=== PATIENT | female | born 1930 | race Caucasian/White ===

== ENCOUNTER → 2017-04-26 | Outpatient (CLI) | payer MEDICARE, OTHER ==
[~2017-04-26] VITALS: Ht 162.6 cm; Wt 78.0 kg
[~2017-04-26] MED LIST: CALC390T PO; CELE200C PO; CHOL500061 PO; DOCU100T7 PO; GLUC1TAB29 PO; METO-272 PO; MULT-974 PO; NITR50CA PO; OMG1KC PO; PROP10DR4 OP; TELM1TAB2 PO; [UNRECOGNIZED DRUG - OTHER] PO
== END ==
LOC: PREOP 15:06
PROVIDERS: ATTEND Podiatrist Foot & Ankle Surgery
DX: Z01.818 Encounter for other preprocedural examination (principal); M20.41 Other hammer toe(s) (acquired), right foot; M20.11 Hallux valgus (acquired), right foot

== ENCOUNTER 2017-04-30 07:16 | Day surgery (SDC) | payer MEDICARE, OTHER ==
[~2017-04-30] VITALS: Ht 162.6 cm; Wt 78.0 kg
[2017-04-30] MEDS ORDERED: proPOfol 200 MG/20 ML (DIPRIVAN) VIAL IV ONE (07:49)
[2017-04-30] MEDS ORDERED: PROPOFOL INJECTION 50 ML IV ONE (07:50)
[2017-04-30] MEDS ORDERED: fentaNYL INJECTION 100 MCG/2 ML AMP ONE (07:50)
[2017-04-30] MEDS ORDERED: ceFAZolin 1 GM/NS 50 ML IVPB IV ONE ×2 (08:00)
[2017-04-30] MEDS ORDERED: LIDOCAINE 1% INJ 20 ML (XYLOCAINE) VIAL ONE (08:08)
[2017-04-30] MEDS ORDERED: BUPIVACAINE 0.5% 30 ML (SENSORCAINE) VIAL ONE (08:09)
[2017-04-30] MEDS ORDERED: DEXAMETHASONE 10 MG/ML (DECADRON) 1 ML VIAL ONE (08:09)
[2017-04-30] MEDS ORDERED: LACTATED RINGERS 1,000 ML IV PRN (08:10)
[2017-04-30 08:20] VITALS: BP 131/68
[2017-04-30] MEDS ORDERED: ASPI-586 PO (08:27)
--- NOTE | 2017-04-30 09:30 | Progress Note-Pre Operative ---
Pre-Operative Progress Note H&P Reviewed The H&P was reviewed, patient examined and no changes noted. Date Seen by Provider: Apr 30, 2017 Time Seen by Provider: : Date H&P Reviewed: Apr 30, 2017 Time H&P Reviewed: : Pre-Operative Diagnosis: Hallux valgus, hammertoes 2nd and 3rd, right foot SAMMIE RODRIGUEZ DPM Apr 30, 2017 9:30 am
[2017-04-30] MEDS ORDERED: LACTATED RINGERS 1,000 ML IV ONE (11:12)
--- NOTE | 2017-04-30 11:29 | Progress Note-Post Operative ---
Post-Operative Progess Note Surgeon (s)/[employer] Sales Agent (s) Surgeon SAMMIE RODRIGUEZ DPM [employer] Members[employer] Sales Agent: none Pre-Operative Diagnosis Hallux valgus, hammertoes 2nd and 3rd, right foot Post-Operative Diagnosis same Procedure & Operative Findings Date of Procedure 04/30/17 Procedure Performed/Findings Phil/Rush Bunionectomy right Arthroplasty right 2nd toe Arthroplasty right 3rd toe Anesthesia Type MAC Estimated Blood Loss Estimated blood loss (mL): Minimal Specimens/Packing Specimens Removed None Packing: None SAMMIE RODRIGUEZ DPM Apr 30, 2017 11:29 am
[2017-04-30] MEDS ORDERED: CEPH500C PO (11:37)
[2017-04-30] MEDS ORDERED: HYDR-3812 PO (11:37)
[2017-04-30] MEDS ORDERED: ONDANSETRON 4 MG/2 ML (SDV) Z0FRAN IVP PRN (11:45)
[2017-04-30] MEDS ORDERED: morphine INJ 10 MG/ML 1ML (SYR OR VIAL) IVP PRN (11:45)
[2017-04-30] MEDS ORDERED: LACTATED RINGERS 1,000 ML IV SCH (12:10)
[2017-04-30] MEDS ORDERED: HYDROcodone/APAP 5 MG/325 MG (LORTAB) TAB PO PRN (12:15)
--- NOTE | 2017-04-30 12:23 | OPERATIVE REPORT ---
DATE OF SERVICE: 04/30/2017 SURGEON: Nancy Gomez DPM PREOPERATIVE DIAGNOSIS: 1. Hallux valgus, metatarsus primus varus, right. 2. 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 POSTOPERATIVE DIAGNOSIS: 1. Hallux valgus, metatarsus primus varus, right. 2. 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 PROCEDURES: 1. Modified Phil-Rush Bunionectomy, right foot. 2. Reduction of Hammertoes, right second and third digits. WOUND CLASS: Clean. ANESTHESIA: Monitored anesthesia care. HEMOSTASIS: Pneumatic ankle tourniquet at 250 mmHg. INDICATION: This 87-year-old female presents complaining of chronic wounds between the first and second digits and the distal tip of the right third toe. Conservative therapy is met with unsatisfactory results and the patient is agreeable to surgical intervention after risks and complications were discussed at length. No guarantees were extended to the patient and she is willing to proceed. PROCEDURE: The patient was brought back to the operating table and placed in a secure supine position. Anesthesia was achieved with a local infusion of 0.5% Marcaine to the first, second and third rays right foot in a siddiqui block and a digital block with a total of 20 mL used. Pneumatic ankle tourniquet was placed on the right lower extremity over several layers of padding. The right foot was then prepped and draped in the normal sterile manner. The right foot was then elevated longitudinally and exsanguinated after which the tourniquet was inflated to 250 mmHg. Attention was then directed to the dorsal aspect of the first metatarsophalangeal joint where a 6 cm longitudinal linear incision was created. The incision was deepened in the same plane with great care to identify and retract all vital neurovascular structures. Only necessary blood vessels were cauterized as encountered. A longitudinal capsulotomy was performed to the first metatarsophalangeal joint, which exposed the hypertrophic medial laminates to the first metatarsal head, which was resected utilizing a power sagittal saw. Next, a Chevron type osteotomy was performed to the surgical neck from medial to lateral, allowing the capital fragment to translocate laterally and was fixated in its corrected position with a 0.062 threaded K-wire with great care not to penetrate the articular cartilage. The K-wire was cut flush with the dorsal aspect of the first metatarsal. The head was further contoured and smoothed and power gladys. Next, attention was then directed to the proximal phalanx where an Rush type osteotomy was performed, subperiosteal dissection was performed after which a wedge of bone was resected with the base medial and lateral cortices held intact. Two airplane pilot holes were created to the dorsal medial aspect of the osteotomy and a 28 gauge monofilament wire was passed through the airplane pilot hole securing the osteotomy in a closed position. Copious amounts of normal saline was utilized for irrigation throughout the procedure. The wound was then closed in layers. Deep closure was performed with 3-0 Vicryl, superficial with 4-0 Vicryl and skin closure with 4-0 Prolene in a horizontal mattress type stitch. Attention was then directed to the dorsal aspect of the second and third rays where a 4 cm longitudinal linear incision was created from the distal interphalangeal joint to the metatarsophalangeal joint. The incision was deepened down to the second and third digits down to the extensor tendon where a Z-lengthening was performed. The extensor tendon was reflected proximally and a release of the dorsal capsule of the metatarsophalangeal joint was performed to the second and third rays. Utilizing a power sagittal saw, the head of the proximal phalanx was resected to the second and third digits. The wounds were flushed with copious amounts of normal saline and closure was then performed in layers. Prior to closure however, a 0.054 K-wire was placed into the digit securing the digits in a rectus alignment. Deep closure was performed with 3-0 Vicryl, superficial with 4-0 Vicryl and skin closure with 4-0 Prolene in a horizontal mattress type stitch. The excess K-wire was cut and a protective ball placed over the end of the wires to the second and third digits. The tourniquet was released noting appropriate capillary refill time to all digits of the right foot. Postoperative dressings consisted of Betadine soaked adaptic, sterile 4 x 4s, sterile Kerlix all secured with a Coban wrap. The patient tolerated the anesthesia and procedure well, was transported from the operating room to the recovery area with vital signs stable and vascular status intact to all digits of the right foot. She is to followup in my office in 10 days period of time or sooner if necessary. She is to be partial weightbearing on the right foot with a walker or crutches. Job ID: [id number] DocumentID: [id number] Dictated Date: 04/30/2017 11:35:49 [employer] Stepper Date: 04/30/2017 12:22:51 Dictated By: ANGIE DAVIES
[2017-04-30 12:30] VITALS: BP 120/65
[2017-04-30 13:00] VITALS: BP 120/53
[2017-04-30 13:40] VITALS: BP 120/53
== END 2017-04-30 13:40 | disposition home or self-care (01) ==
LOC: SDC 07:16
PROVIDERS: ATTEND Podiatrist Foot & Ankle Surgery
DX: M20.11 Hallux valgus (acquired), right foot (principal); M20.41 Other hammer toe(s) (acquired), right foot; I10 Essential (primary) hypertension; E11.9 Type 2 diabetes mellitus without complications; Z79.899 Other long term (current) drug therapy; Z11.2 Encounter for screening for other bacterial diseases
CPT/HCPCS: 73620; 82962; 87081